=== PATIENT | male | born 1990 | race African-American/Black ===

== ENCOUNTER 2022-12-09 08:19 | Emergency (ER) | payer MEDICAID ==
[~2022-12-09] VITALS: Ht 177.8 cm; Wt 97.5 kg
[2022-12-09] MEDS ORDERED: IV NORMAL SALINE 500 ML BAG IV ONE (08:45)
[2022-12-09 08:52] LABS: HEMATOCRIT 58.6 % (36.7-47.1); MEAN CORPUSCULAR HEMOGLOBIN 32.2 uug (23.8-33.4); MEAN CORPUSCULAR VOLUME 96.4 fL (73.0-96.2); PLATELET COUNT (AUTO) 330 K/uL (152-348)
[2022-12-09 09:02] LABS: CREATININE 1.1 mg/dL (0.6-1.3); POTASSIUM 3.7 mmol/L (3.5-5.1)
[2022-12-09 09:03] LABS: *BILIRUBIN,URIN 2+ (NEGATIVE); *CLARITY,URINE CLEAR (CLEAR); *COLOR,URINE AMBER (YELLOW); *KETONES,URINE TRACE (NEGATIVE); LEUKOCYTE ESTERASE ,URINE NEGATIVE (NEGATIVE); NITRITE, URINE NEGATIVE (NEGATIVE); UGLUCOSE NEGATIVE (NEGATIVE)
[2022-12-09 09:04] LABS: *BLOOD, URINE TRACE (NEGATIVE)
--- NOTE | 2022-12-09 09:05 | NUR ---
PT IS IN ROOM #2A. DR KENNEDY EVALUATED THE PT.
[2022-12-09 09:08] LABS: BILIRUBIN,DIRECT 1.3 mg/dL (0.0-0.2); BILIRUBIN,TOTAL 4.1 mg/dL (0.2-1.0)
--- NOTE | 2022-12-09 11:48 | NUR ---
PT WAS D/C'd TO HOME. D/C INSTRUCTIONS GIVEN TO THE PT BY DR KENNEDY.
[2022-12-09 11:50] VITALS: BP 118/73
[2022-12-09 12:10] LABS: BACTERIA,URINE FEW /HPF (NONE SEEN); MUCUS,URINE MODERATE /LPF (0-FEW); RBC,URINE NONE SEEN /HPF (0-3); SQUAMOUS EPITHELIAL CELL,UR FEW /HPF (NONE SEEN)
[2022-12-09 16:17] LABS: BAND % (MANUAL) 2 % (0-10); EOSINOPHILS % (MANUAL) 2 % (0-8); LYMPHOCYTES % (MANUAL) 15 % (20-40); METAMYELOCYTES % 1 % (0-1); MONOCYTES % (MANUAL) 7 % (2-10); NEUTROPHILS % (MANUAL) 73 % (42-75)
== END 2022-12-09 12:13 | disposition home or self-care (01) ==
LOC: ER 08:27
DX: R10.9 Unspecified abdominal pain (principal); R42 Dizziness and giddiness; R19.7 Diarrhea, unspecified; Z90.49 Acquired absence of other specified parts of digestive tract; D72.829 Elevated white blood cell count, unspecified; R82.2 Biliuria; R00.0 Tachycardia, unspecified; E86.0 Dehydration
CPT/HCPCS: 99284; 74176; 96360; 80076; 80048; 81001; 83690; 85025; 36415; 83605; 87040; 85007; J7040; 70030-TC; A4663